=== PATIENT | female | born 1955 | race Caucasian/White ===

== ENCOUNTER 2016-11-15 14:09 | Inpatient (IN) | payer MEDICAID ==
[~2016-11-15] VITALS: Ht 160 cm; Wt 91.9 kg
[2016-11-15 15:13] LABS: Basophils # (auto) 0.1 uL; Basophils % (auto) 0.8 % (0.0-2.0); Eosinophils # (auto) 0.2 uL; Eosinophils % (auto) 1.5 % (0.0-7.0); Hematocrit 43.9 % (36.0-46.0); Hemoglobin 14.6 g/dL (12.2-16.2); Lymphocytes # (auto) 2.8 uL; Lymphocytes % (auto) 24.1 % (10.0-50.0); Mean Corpuscular Hemoglobin 29.2 pg (28.0-32.0); Mean Corpuscular Hgb Conc. 33.3 g/dL (32.0-36.0); Mean Corpuscular Volume 87.7 fL (80.0-100.0); Mean Platelet Volume 7.8 fL (7.4-10.4); Monocytes # (auto) 0.9 uL; Monocytes % (auto) 7.9 % (0.0-12.0); Neutrophils # (auto) 7.7 uL; Neutrophils % (auto) 65.7 % (37.0-80.0); Platelet Count (auto) 332 10^3/uL (140-450); Red Cell Distribution Width 14.3 % (11.6-16.0); White Blood Cell 11.8 10^3/uL (4.4-10.8)
[2016-11-15 15:44] LABS: Albumin 3.8 g/dL (3.4-5.0); Calcium 9.2 mg/dL (8.5-10.1); Potassium 3.8 mmol/L (3.5-5.1)
[2016-11-15 15:46] LABS: BUN/Creatinine Ratio 14.6
[2016-11-15 15:49] LABS: Bilirubin, Total 0.4 mg/dL (0.2-1.0); Total Protein 7.6 g/dL (6.4-8.2)
[2016-11-15] MEDS ORDERED: IOHEXOL 350 MG/ML 100ML IJ ONE (16:08)
[2016-11-15] MEDS ORDERED: IOHEXOL 300 MG/ML 100ML BOTTLE IJ ONE (16:31)
[2016-11-15] MEDS ORDERED: ONDANSETRON HCL 4 MG/2 ML VIAL IV PRN (18:15)
[2016-11-15] MEDS ORDERED: ACETAMINOPHEN 325 MG TAB PO PRN (18:15)
[2016-11-15] MEDS ORDERED: MORPHINE SULF INJ 2 MG/ML SYRINGE 1ML IV PRN (18:15)
[2016-11-15] MEDS ORDERED: TEMAZEPAM 15 MG CAP PO PRN (18:15)
[2016-11-15] MEDS ORDERED: HYDROcodone-ACET 5/325MG TAB PO PRN (18:15)
[2016-11-15 18:20] LABS: Urine RBC None Seen /hpf (0 - 4)
[2016-11-15 18:45] LABS: Urine Bilirubin Negative (Negative); Urine Blood Negative /uL (Negative); Urine Color Yellow (Yellow); Urine Glucose Normal (Normal); Urine Ketone Negative (Negative); Urine Nitrite Negative (Negative); Urine Squamous Epithelial Cell FEW /hpf (<5); Urine Urobilinogen Normal (Negative)
[2016-11-15 20:07] LABS: Hematocrit 44.5 % (36.0-46.0); Hemoglobin 14.6 g/dL (12.2-16.2)
[2016-11-15 20:30] VITALS: BP 113/75
[2016-11-15 22:00] VITALS: BP 113/75
[2016-11-15] MEDS: FAMOTIDINE 20 MG TAB PO SCH (22:33)
[2016-11-15] MEDS: SODIUM CHLOR 0.9% PF (SALINE LOCK) 10ML VIAL IV SCH (22:34)
[2016-11-16] MEDS ORDERED: ERGO1CAP6 PO (03:40)
[2016-11-16] MEDS ORDERED: CHOL20007 PO (03:40)
[2016-11-16 05:00] VITALS: BP 124/71
[2016-11-16 06:30] LABS: INR 1.06 (0.9-1.15); Prothrombin Time 11.4 sec (9.37-12.3)
[2016-11-16] MEDS: SODIUM CHLOR 0.9% PF (SALINE LOCK) 10ML VIAL IV SCH ×3 (06:41→21:43)
[2016-11-16 06:46] LABS: Basophils # (auto) 0.1 uL; Basophils % (auto) 0.7 % (0.0-2.0); Eosinophils # (auto) 0.3 uL; Hematocrit 43.7 % (36.0-46.0); Hemoglobin 14.5 g/dL (12.2-16.2); Lymphocytes # (auto) 2.9 uL; Lymphocytes % (auto) 30.9 % (10.0-50.0); Mean Corpuscular Hemoglobin 29.3 pg (28.0-32.0); Mean Corpuscular Hgb Conc. 33.1 g/dL (32.0-36.0); Mean Corpuscular Volume 88.5 fL (80.0-100.0); Mean Platelet Volume 8.1 fL (7.4-10.4); Monocytes # (auto) 0.9 uL; Monocytes % (auto) 9.9 % (0.0-12.0); Neutrophils # (auto) 5.1 uL; Neutrophils % (auto) 55.5 % (37.0-80.0); Platelet Count (auto) 311 10^3/uL (140-450); Red Cell Distribution Width 14.5 % (11.6-16.0); White Blood Cell 9.2 10^3/uL (4.4-10.8)
[2016-11-16 07:01] LABS: Albumin 3.3 g/dL (3.4-5.0); Bilirubin, Total 0.5 mg/dL (0.2-1.0); Potassium 3.8 mmol/L (3.5-5.1); Total Protein 7.1 g/dL (6.4-8.2)
[2016-11-16 08:00] VITALS: BP 114/69
[2016-11-16] MEDS: FAMOTIDINE 20 MG TAB PO SCH ×2 (10:56→21:55)
[2016-11-16] MEDS: MULTIPLE VITAMIN TAB PO SCH (10:56)
[2016-11-16] MEDS: CHOLECALCIFEROL (VITD3) 1,000 UNIT TAB PO SCH (10:57)
[2016-11-16 13:00] VITALS: BP 127/77
[2016-11-16] MEDS ORDERED: GOLYTELY 4L KIT PO ONE (14:00)
[2016-11-16 17:00] VITALS: BP 137/117
[2016-11-16] MEDS: metroNIDAZOLE 500 MG TAB PO SCH (18:07)
[2016-11-16 20:00] VITALS: BP 132/78
[2016-11-17] MEDS: metroNIDAZOLE 500 MG TAB PO SCH ×5 (01:27→23:46)
[2016-11-17] MEDS: SODIUM CHLOR 0.9% PF (SALINE LOCK) 10ML VIAL IV SCH ×3 (05:13→22:06)
[2016-11-17 05:22] VITALS: BP 105/70
[2016-11-17 06:30] LABS: Basophils # (auto) 0 uL; Basophils % (auto) 0.6 % (0.0-2.0); Eosinophils # (auto) 0.2 uL; Eosinophils % (auto) 2.3 % (0.0-7.0); Hemoglobin 14.3 g/dL (12.2-16.2); Lymphocytes # (auto) 2.1 uL; Lymphocytes % (auto) 23.4 % (10.0-50.0); Mean Corpuscular Hemoglobin 29.2 pg (28.0-32.0); Mean Corpuscular Hgb Conc. 33.3 g/dL (32.0-36.0); Mean Corpuscular Volume 87.7 fL (80.0-100.0); Mean Platelet Volume 7.9 fL (7.4-10.4); Monocytes % (auto) 10.8 % (0.0-12.0); Neutrophils # (auto) 5.6 uL; Neutrophils % (auto) 62.9 % (37.0-80.0); Platelet Count (auto) 294 10^3/uL (140-450); Red Cell Distribution Width 14.1 % (11.6-16.0); White Blood Cell 8.9 10^3/uL (4.4-10.8)
[2016-11-17 06:46] LABS: BUN/Creatinine Ratio 11.9; Potassium 3.9 mmol/L (3.5-5.1)
[2016-11-17 08:00] VITALS: BP 116/70
[2016-11-17] MEDS ORDERED: SODIUM CHLORIDE LOCK 10 ML ONE (08:16)
[2016-11-17] MEDS ORDERED: diphenhdrAMINE HCL 50 MG/1 ML VL ONE (08:17)
[2016-11-17 09:00] VITALS: BP 116/70
[2016-11-17] MEDS: FAMOTIDINE 20 MG TAB PO SCH ×2 (10:03→21:31)
[2016-11-17] MEDS: MULTIPLE VITAMIN TAB PO SCH (10:03)
[2016-11-17] MEDS: CHOLECALCIFEROL (VITD3) 1,000 UNIT TAB PO SCH (10:09)
[2016-11-17] MEDS: MIDAZOLAM HCL 5 MG/ML-1ML VIAL ONE ×3 (10:27→10:35)
[2016-11-17] MEDS: fentaNYL CITRATE 100 MCG/2 ML VL ONE ×3 (10:27→10:35)
[2016-11-17] MEDS ORDERED: VANCOMYCIN HCL 125MG/5ML ORAL SOL PO SCH (12:00)
[2016-11-17 13:00] VITALS: BP 147/73
[2016-11-17 17:00] VITALS: BP 124/81
[2016-11-17 22:00] VITALS: BP 136/76
[2016-11-18 05:31] VITALS: BP 96/64
[2016-11-18] MEDS: metroNIDAZOLE 500 MG TAB PO SCH ×4 (06:22→21:47)
[2016-11-18] MEDS: SODIUM CHLOR 0.9% PF (SALINE LOCK) 10ML VIAL IV SCH ×3 (06:23→21:47)
[2016-11-18 07:03] LABS: Basophils # (auto) 0 uL; Basophils % (auto) 0.5 % (0.0-2.0); Eosinophils # (auto) 0.2 uL; Eosinophils % (auto) 2.3 % (0.0-7.0); Hematocrit 41.8 % (36.0-46.0); Hemoglobin 13.8 g/dL (12.2-16.2); Lymphocytes # (auto) 2.1 uL; Lymphocytes % (auto) 20.2 % (10.0-50.0); Mean Corpuscular Hemoglobin 29.1 pg (28.0-32.0); Mean Corpuscular Hgb Conc. 33.1 g/dL (32.0-36.0); Mean Corpuscular Volume 87.9 fL (80.0-100.0); Monocytes % (auto) 9.7 % (0.0-12.0); Neutrophils % (auto) 67.3 % (37.0-80.0); Platelet Count (auto) 295 10^3/uL (140-450); Red Cell Distribution Width 14.4 % (11.6-16.0); White Blood Cell 10.4 10^3/uL (4.4-10.8)
[2016-11-18 07:20] VITALS: BP 118/66
[2016-11-18 07:22] LABS: Albumin 3.3 g/dL (3.4-5.0); BUN/Creatinine Ratio 14.3; Bilirubin, Total 0.5 mg/dL (0.2-1.0); Calcium 8.5 mg/dL (8.5-10.1); Potassium 3.9 mmol/L (3.5-5.1); Total Protein 6.6 g/dL (6.4-8.2)
[2016-11-18 08:00] VITALS: BP 118/66
[2016-11-18] MEDS: FAMOTIDINE 20 MG TAB PO SCH ×2 (09:24→21:47)
[2016-11-18] MEDS: CHOLECALCIFEROL (VITD3) 1,000 UNIT TAB PO SCH (09:24)
[2016-11-18] MEDS: MULTIPLE VITAMIN TAB PO SCH (09:24)
[2016-11-18 12:33] VITALS: BP 113/72
[2016-11-18 17:06] VITALS: BP 133/75
[2016-11-18 22:00] VITALS: BP 131/82
[2016-11-19 05:00] VITALS: BP 130/75
[2016-11-19] MEDS: SODIUM CHLOR 0.9% PF (SALINE LOCK) 10ML VIAL IV SCH ×2 (05:30→13:44)
[2016-11-19] MEDS: metroNIDAZOLE 500 MG TAB PO SCH ×2 (05:30→11:50)
[2016-11-19 05:43] LABS: Basophils # (auto) 0 uL; Basophils % (auto) 0.5 % (0.0-2.0); Eosinophils # (auto) 0.3 uL; Eosinophils % (auto) 3.4 % (0.0-7.0); Hematocrit 42.3 % (36.0-46.0); Hemoglobin 13.9 g/dL (12.2-16.2); Lymphocytes % (auto) 23.5 % (10.0-50.0); Mean Corpuscular Hemoglobin 29.4 pg (28.0-32.0); Mean Corpuscular Hgb Conc. 32.9 g/dL (32.0-36.0); Mean Corpuscular Volume 89.2 fL (80.0-100.0); Mean Platelet Volume 8.2 fL (7.4-10.4); Monocytes # (auto) 0.9 uL; Monocytes % (auto) 10.9 % (0.0-12.0); Neutrophils # (auto) 5.2 uL; Neutrophils % (auto) 61.7 % (37.0-80.0); Platelet Count (auto) 284 10^3/uL (140-450); Red Cell Distribution Width 14.4 % (11.6-16.0); White Blood Cell 8.4 10^3/uL (4.4-10.8)
[2016-11-19 06:05] LABS: BUN/Creatinine Ratio 13.2; Calcium 8.7 mg/dL (8.5-10.1); Potassium 4.2 mmol/L (3.5-5.1)
[2016-11-19 07:30] VITALS: BP 140/75
[2016-11-19 08:58] VITALS: BP 140/75
[2016-11-19] MEDS: MULTIPLE VITAMIN TAB PO SCH (10:26)
[2016-11-19] MEDS: CHOLECALCIFEROL (VITD3) 1,000 UNIT TAB PO SCH (10:26)
[2016-11-19] MEDS: FAMOTIDINE 20 MG TAB PO SCH (10:27)
[2016-11-19 13:10] VITALS: BP 137/80
[2016-11-19 13:46] VITALS: BP 137/80
== END 2016-11-19 15:00 | disposition home or self-care (01) | DRG 240 ==
LOC: ER 14:16 → TELE 14:17 → WEST WING 20:20
PROVIDERS: ADMIT Internal Medicine; ATTEND Internal Medicine
PROC: 0DBN8ZX Excision of Sigmoid Colon, Via Natural or Artificial Opening Endoscopic, Diagnostic (ICD-10-PCS; 2016-11-17)
PROC: 0DBM8ZX Excision of Descending Colon, Via Natural or Artificial Opening Endoscopic, Diagnostic (ICD-10-PCS; 2016-11-17)
PROC: 0DBP8ZX Excision of Rectum, Via Natural or Artificial Opening Endoscopic, Diagnostic (ICD-10-PCS; principal; 2016-11-17 10:24)
DX: C19 Malignant neoplasm of rectosigmoid junction (principal); A04.7 Enterocolitis due to Clostridium difficile; E88.09 Other disorders of plasma-protein metabolism, not elsewhere classified; R16.0 Hepatomegaly, not elsewhere classified; D12.4 Benign neoplasm of descending colon; K42.9 Umbilical hernia without obstruction or gangrene; F17.210 Nicotine dependence, cigarettes, uncomplicated; N81.4 Uterovaginal prolapse, unspecified; N18.2 Chronic kidney disease, stage 2 (mild); M47.894 Other spondylosis, thoracic region; M47.897 Other spondylosis, lumbosacral region; N18.9 Chronic kidney disease, unspecified; K57.30 Diverticulosis of large intestine without perforation or abscess without bleeding; K64.4 Residual hemorrhoidal skin tags; Z82.49 Family history of ischemic heart disease and other diseases of the circulatory system; Z83.3 Family history of diabetes mellitus; Z80.9 Family history of malignant neoplasm, unspecified; Z68.35 Body mass index [BMI] 35.0-35.9, adult; Z85.41 Personal history of malignant neoplasm of cervix uteri; Z98.51 Tubal ligation status
CPT/HCPCS: 36415; 45380; 45385; 71020; 74177; 80048; 80053; 81001; 82150; 82270; 83690; 85014; 85018; 85025; 85610; 86850; 86900; 86901; 87086; 87493; 94761; J2250

== ENCOUNTER 2016-12-19 15:04 | Emergency (ER) | payer MEDICAID ==
[~2016-12-19] VITALS: Ht 157.5 cm; Wt 87.1 kg
[~2016-12-19 15:04] MED LIST: CHOL20007 PO; ERGO1CAP6 PO
[2016-12-19 15:26] VITALS: BP 140/80
[2016-12-19 16:23] LABS: Basophils # (auto) 0 uL; Basophils % (auto) 0.3 % (0.0-2.0); Eosinophils # (auto) 0.2 uL; Eosinophils % (auto) 1.2 % (0.0-7.0); Hematocrit 42.9 % (36.0-46.0); Hemoglobin 14.4 g/dL (12.2-16.2); Lymphocytes # (auto) 2.8 uL; Lymphocytes % (auto) 20.8 % (10.0-50.0); Mean Corpuscular Hemoglobin 29.7 pg (28.0-32.0); Mean Corpuscular Hgb Conc. 33.6 g/dL (32.0-36.0); Mean Corpuscular Volume 88.4 fL (80.0-100.0); Mean Platelet Volume 8.4 fL (7.4-10.4); Monocytes % (auto) 7.7 % (0.0-12.0); Neutrophils # (auto) 9.4 uL; Platelet Count (auto) 328 10^3/uL (140-450); Red Cell Distribution Width 13.8 % (11.6-16.0); White Blood Cell 13.4 10^3/uL (4.4-10.8)
[2016-12-19 16:35] LABS: BUN/Creatinine Ratio 18.3; Calcium 8.9 mg/dL (8.5-10.1); Potassium 3.8 mmol/L (3.5-5.1)
[2016-12-19 16:39] LABS: Bilirubin, Total 0.4 mg/dL (0.2-1.0); Total Protein 7.5 g/dL (6.4-8.2)
== END 2016-12-19 22:47 | disposition left against medical advice (07) ==
LOC: ER 15:24
DX: K92.2 Gastrointestinal hemorrhage, unspecified (principal); Z53.21 Procedure and treatment not carried out due to patient leaving prior to being seen by health care provider
CPT/HCPCS: 36415; 80053; 85025; 93005

== ENCOUNTER 2017-07-24 08:35 | Day surgery (SDC) | payer MEDICAID ==
[~2017-07-24] VITALS: Ht 157.5 cm; Wt 85.7 kg
[2017-07-24] MEDS ORDERED: MIDAZOLAM HCL 1MG/1ML-2 ML VIAL ONE (09:28)
[2017-07-24] MEDS ORDERED: fentaNYL CITRATE 100 MCG/2 ML VL ONE (09:28)
[2017-07-24] MEDS ORDERED: DEXAMETHASONE SOD PHOS 10MG/1ML VIAL INJ ONE (09:29)
[2017-07-24] MEDS ORDERED: MEPERIDINE HCL (50 MG/ML) 1 ML VIAL ONE (09:29)
[2017-07-24] MEDS ORDERED: PROPOFOL 10 MG/ML 20 ML IV ONE (09:29)
[2017-07-24] MEDS ORDERED: MORPHINE SULF INJ 2 MG/ML SYRINGE 1ML IV ONE (10:00)
[2017-07-24] MEDS ORDERED: ONDANSETRON HCL 4 MG/2 ML VIAL IV ONE (10:00)
[2017-07-24] MEDS ORDERED: KETOROLAC TROMETH 30 MG/ML 1ML VIAL IV ONE (10:00)
[2017-07-24] MEDS ORDERED: LABETALOL HCL 5 MG/ML 4ML SYRINGE IV PRN (10:00)
[2017-07-24] MEDS ORDERED: ePHEDrine SULFATE 50 MG/ML AMP IV PRN (10:00)
[2017-07-24] MEDS ORDERED: MIDAZOLAM HCL 1MG/1ML-2 ML VIAL IV PRN (10:00)
[2017-07-24] MEDS ORDERED: HYDROmorphone HCL 2 MG/ML VL IV PRN (10:00)
[2017-07-24 10:50] VITALS: BP 107/66
== END 2017-07-24 10:50 | disposition home or self-care (01) ==
LOC: GI 08:35
PROVIDERS: ATTEND Internal Medicine Gastroenterology
DX: K64.8 Other hemorrhoids (principal); K64.4 Residual hemorrhoidal skin tags; K63.89 Other specified diseases of intestine; K62.89 Other specified diseases of anus and rectum; K57.30 Diverticulosis of large intestine without perforation or abscess without bleeding; Z88.1 Allergy status to other antibiotic agents; E66.9 Obesity, unspecified; Z68.34 Body mass index [BMI] 34.0-34.9, adult; Z85.41 Personal history of malignant neoplasm of cervix uteri; Z98.51 Tubal ligation status; F17.210 Nicotine dependence, cigarettes, uncomplicated; Z93.3 Colostomy status
CPT/HCPCS: 45380; J2175; J3010; J7030; J1100; J2250; J2704